=== PATIENT | female | born 1980 | race Caucasian/White ===

== ENCOUNTER 2018-06-13 23:21 | Emergency (ER) | payer BC ==
[2018-06-14] MEDS ORDERED: ALBUTEROL 2.5 MG/3 ML NEB SOL ONE (01:19)
[2018-06-14] MEDS ORDERED: METHYLPREDNISOLONE 125 MG INJ ONE (01:19)
[2018-06-14 01:20] LABS: Urine Specific Gravity 1.015 (1.005-1.030)
[2018-06-14] MEDS ORDERED: DIPHENHYDRAMINE 50 MG/ML VIAL ONE (01:20)
[2018-06-14] MEDS ORDERED: NA CHLORIDE 0.9% 1,000 ML ONE (01:20)
[2018-06-14] MEDS ORDERED: FAMOTIDINE 20 MG/2 ML VIAL IV ONE (01:20)
[2018-06-14 01:21] LABS: Urine Blood NEGATIVE (NEG); Urine Glucose NEGATIVE (NEG); Urine Protein NEGATIVE (NEG); Urine Specific Gravity 1.015 (1.005-1.030)
--- NOTE | 2018-06-14 01:56 | EDPHYS ---
Physician Documentation [facility] Name: Irma Pittman Age: 37 yrs Sex: Female : 1980 Arrival Date: 06/13/2018 Time: 23:23 Bed 26 Private MD: Anibal Mena ED Physician Lupe Orta HPI: 06/14 00:05 This 37 yrs old Female presents to ER via Ambulatory with complaints of cp medication reaction, Hand Swelling. 00:05 The patient presents with localized swelling, shortness of breath, hands and feet. cp 00:05 Onset: The symptoms/episode began/occurred today. cp 00:05 Associated signs and symptoms: Pertinent negatives: chest pain, dysphagia, rash, cp Syncope vomiting. Possible causes: NSAIDs, Meloxicam. At home the patient or guardian has treated the symptoms with nothing. Severity of symptoms: in the emergency department the symptoms are unchanged. 00:05 Patient reports she was prescribed Meloxicam, medrol dose silver and flexeril today for cp "pinched nerve" of left elbow. Started having shortness of breath, hand and feet swelling after taking Meloxicam today. 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 - Social history:: Smoking status: Patient/guardian denies using tobacco. - Ebola Screening: : Patient negative for fever greater than or equal to 101.5 degrees Fahrenheit, and additional compatible Ebola Virus Disease symptoms. ROS: 06/14 00:10 Constitutional: Negative for body aches, chills, fever, poor PO intake. cp 00:10 Eyes: Negative for injury, pain, redness, and discharge. cp 00:10 ENT: Negative for drainage from ear(s), ear pain, sore throat, difficulty swallowing, difficulty handling secretions. 00:10 Cardiovascular: Negative for chest pain, edema, palpitations. 00:10 Respiratory: Positive for shortness of breath, Negative for cough, wheezing. 00:10 Abdomen/GI: Negative for abdominal pain, vomiting, diarrhea, constipation. 00:10 MS/extremity: Positive for swelling, of the right hand, left hand, right foot and left foot, Negative for erythema. 00:10 Skin: Negative for rash. 00:10 Neuro: Negative for altered mental status, headache, syncope, weakness. 00:10 All other systems are negative. Exam: 00:15 Constitutional: The patient appears in no acute distress, alert, awake, cp non-diaphoretic, non-toxic, well developed, well nourished. 00:15 Head/Face: Normocephalic, atraumatic. Eyes: Pupils equal round and reactive to light, cp extra-ocular motions intact. Lids and lashes normal. Conjunctiva and sclera are non-icteric and not injected. Cornea within normal limits. Periorbital areas with no swelling, redness, or edema. ENT: Nares patent. No nasal discharge, no septal abnormalities noted. Tympanic membranes are normal and external auditory canals are clear. Oropharynx with no redness, swelling, or masses, exudates, or evidence of obstruction, uvula midline. Mucous membranes moist. 00:15 Chest/axilla: Inspection: normal, Palpation: is normal, no crepitus, no tenderness. 00:15 Cardiovascular: Rate: normal, Rhythm: regular. 00:15 Respiratory: the patient does not display signs of respiratory distress, Respirations: normal, no use of accessory muscles, no retractions, no splinting, no tachypnea, labored breathing, is not present, Breath sounds: decreased breath sounds, that are mild, throughout, stridor, is not appreciated, wheezing: is not appreciated. 00:15 Abdomen/GI: Inspection: abdomen appears normal. 00:15 Skin: no rash present. 00:15 Neuro: Orientation: to person, place \\T\\ time. Mentation: is normal, Cerebellar function: is grossly normal, Motor: moves all fours, strength is normal, Sensation: is normal. Vital Signs: 06/13 23:27 BP 140 / 85; Pulse 98; Resp 19 S; Temp 98.4(TE); Pulse Ox 98% on R/A; Weight 114.31 kg jd3 (R); Height 5 ft. 2 in. (157.48 cm) (R); Pain 6/10; 06/14 02:34 BP 130 / 80; Pulse 86; Resp 18; Pulse Ox 98% ; Pain 0/10; jl3 06/13 23:27 Body Mass Index 46.09 (114.31 kg, 157.48 cm) jd3 MDM: 06/13 23:54 Patient medically screened. cp 06/14 00:00 Differential diagnosis: anaphylaxis, angioedema, urticaria. cp 01:54 Data reviewed: vital signs, nurses notes, lab test result(s), and as a result, I will cp discharge patient. 01:55 Counseling: I had a detailed discussion with the patient and/or guardian regarding: the cp historical points, exam findings, and any diagnostic results supporting the discharge/admit diagnosis, to return to the emergency department if symptoms worsen or persist or if there are any questions or concerns that arise at home. Response to treatment: the patient's symptoms have mildly improved after treatment, VSS. No signs of respiratory distress, symptoms improved. Will discharge to home for continued monitoring. 06/14 01:04 Order name: Urine Dipstick--Ancillary (enter results); Complete Time: 01: cm6 06/14 01:06 Order name: Urine --Ancillary (enter results) cm6 06/14 01:06 Order name: Urine --Ancillary; Complete Time: 01: EDMS 06/14 00:11 Order name: IV; Complete Time: 01:04 cp 06/14 00:11 Order name: Urine Dipstick-Ancillary (obtain specimen); Complete Time: 01:05 cp 06/14 00:11 Order name: Urine Test (obtain specimen); Complete Time: 01:05 cp Administered Medications: 01:27 Drug: Pepcid 20 mg Route: IVP; Site: right antecubital; jl3 02:54 Follow up: Response: No adverse reaction jl3 :27 Drug: Albuterol 2.5 mg Route: Inhalation; jl3 02:53 Follow up: Response: No adverse reaction jl3 :27 Drug: SOLU-Medrol 125 mg Route: IVP; Site: right antecubital; jl3 02:53 Follow up: Response: No adverse reaction jl3 01:28 Drug: NS 0.9% 1000 ml Route: IV; Rate: 1 bolus; Site: right antecubital; jl3 02:54 Follow up: Response: No adverse reaction; IV Status: Completed infusion; IV Intake: jl3 1000ml 01:28 Drug: Benadryl 50 mg Route: IVP; Site: right antecubital; jl3 02:54 Follow up: Response: No adverse reaction jl3 Disposition: 03:53 Co-signature as Attending Physician, Lupe Orta MD. ma2 Disposition: 06/14/18 01:55 Discharged to Home. Impression: Allergy status to drugs, medicaments and biological substances. - Condition is Stable. - Discharge Instructions: Drug Allergy. - Prescriptions for prednisone 50 mg Oral tablet - take 1 tablet by ORAL route once daily for 5 days; 5 tablet. Pepcid 20 mg Oral Tablet - take 1 tablet by ORAL route every 12 hours for 5 days; 10 tablet. - Medication Reconciliation Form, Thank You Letter, Antibiotic Education, Prescription Opioid Use form. - Follow up: Private Physician; When: 1 week; Reason: Recheck today's complaints. - Problem is new. - Symptoms have improved. - Notes: Do not take medrol dose silver, take oral prednisone 50mg daily for next 5 days Signatures: Dispatcher [employer] EDMS Jeremy Li RN RN jl3 Jose L Ford PA PA Braydon Lyon RN RN jd3 Lupe Orta MD MD ma2 Corrections: (The following items were deleted from the chart) 02:52 01:55 06/14/2018 01:55 Discharged to Home. Impression: Allergy status to drugs, jl3 medicaments and biological substances. Condition is Stable. Forms are Medication Reconciliation Form, Thank You Letter, Antibiotic Education, Prescription Opioid Use. Follow up: Private Physician; When: 1 week; Reason: Recheck today's complaints. Problem is new. Symptoms have improved. cp
--- NOTE | 2018-06-14 01:56 | ER ---
Nurse's Notes [facility] Name: Irma Pittman Age: 37 yrs Sex: Female : 1980 Arrival Date: 06/13/2018 Time: 23:23 Bed 26 Private MD: Anibal Mena Diagnosis: Allergy status to drugs, medicaments and biological substances Presentation: 06/13 23:25 Presenting complaint: Patient states: "I took a new a mediation, and my hand started jd3 swelling and my face got flush and it was difficult to breath.". Transition of care: patient was not received from another setting of care. Onset of symptoms was June 13, 2018. Risk Assessment: Do you want to hurt yourself or someone else? Patient reports no desire to harm self or others. Initial Sepsis Screen: Does the patient meet any 2 criteria? No. Patient's initial sepsis screen is negative. Does the patient have a suspected source of infection? No. Patient's initial sepsis screen is negative. Care prior to arrival: None. 23:25 Method Of Arrival: Ambulatory jd3 23:25 Acuity: ERICK 2 jd3 Triage Assessment: 06/14 02:51 General: Appears uncomfortable, obese, Behavior is calm, cooperative, appropriate for jl3 age, agitated. 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 - Social history:: Smoking status: Patient/guardian denies using tobacco. - Ebola Screening: : Patient negative for fever greater than or equal to 101.5 degrees Fahrenheit, and additional compatible Ebola Virus Disease symptoms. Screenin/05 02:45 Abuse screen: none noted. Nutritional screening: No deficits noted. Tuberculosis jl3 screening: No symptoms or risk factors identified. Fall Risk None identified. Assessment: 06/13 23:43 General: Pt states has pinched nerve in L. elbow. PCP Rx Meloxicam 5mg, steroid pack jl3 and muscle relaxer. Pt states took Meloxicam x1. States face feels flushed and swollen, has difficulty taking deep breath but NO tightness in throat or swelling of tongue. Some inflammation not to L. L. arm.. Pain: Complains of pain in left elbow Pain currently is 5 out of 10 on a pain scale. Quality of pain is described as aching, crampy, Pain began 2-3 days ago. Alleviated by exercise, repositioning. 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 Cardiovascular: No deficits noted. Respiratory: Reports shortness of breath since States difficulty taking deep breath. GI: No deficits noted. : No deficits noted. Vital Signs: 23:27 BP 140 / 85; Pulse 98; Resp 19 S; Temp 98.4(TE); Pulse Ox 98% on R/A; Weight 114.31 kg jd3 (R); Height 5 ft. 2 in. (157.48 cm) (R); Pain 6/10; 06/14 02:34 BP 130 / 80; Pulse 86; Resp 18; Pulse Ox 98% ; Pain 0/10; jl3 06/13 23:27 Body Mass Index 46.09 (114.31 kg, 157.48 cm) jd3 ED Course: 06/13 23:23 Patient arrived in ED. am2 23:23 Anibal Mena MD is Private Physician. am2 23:26 Triage completed. jd3 23:28 Arm band placed on. jd3 23:36 Jeremy Li RN is Primary Nurse. jl3 23:53 Jose L Ford PA is PHCP. cp 23:53 Lupe Orta MD is Attending Physician. cp 06/14 00:58 Inserted saline lock: 22 gauge in right antecubital area, using aseptic technique. fc 02:51 No provider procedures requiring assistance completed. IV discontinued, intact, jl3 bleeding controlled, No redness/swelling at site. Pressure dressing applied. 02:52 Patient has correct armband on for positive identification. jl3 Administered Medications: 01:27 Drug: Pepcid 20 mg Route: IVP; Site: right antecubital; jl3 02:54 Follow up: Response: No adverse reaction jl3 01:27 Drug: Albuterol 2.5 mg Route: Inhalation; jl3 02:53 Follow up: Response: No adverse reaction jl3 01:27 Drug: SOLU-Medrol 125 mg Route: IVP; Site: right antecubital; jl3 02:53 Follow up: Response: No adverse reaction jl3 01:28 Drug: NS 0.9% 1000 ml Route: IV; Rate: 1 bolus; Site: right antecubital; jl3 02:54 Follow up: Response: No adverse reaction; IV Status: Completed infusion; IV Intake: jl3 1000ml 01:28 Drug: Benadryl 50 mg Route: IVP; Site: right antecubital; jl3 02:54 Follow up: Response: No adverse reaction jl3 Intake: 02:54 IV: 1000ml; Total: 1000ml. jl3 Outcome: 01:55 Discharge ordered by MD. page 02:52 Discharged to home ambulatory. jl3 02:52 Condition: improved 02:52 Discharge instructions given to patient, Prescriptions given X 2. 02:52 Patient left the ED. jl3 Signatures: Khadijah Wallace RN RN fc Jeremy Li RN RN jl3 Jose L Ford PA PA cp Moreno, Amanda am2 Davies, Jonathon, RN RN jd3
[2018-06-14] MEDS ORDERED: ONDANSETRON 4 MG/2 ML VIAL ONE (01:57)
== END 2018-06-14 02:52 | disposition home or self-care (01) ==
LOC: ER 23:21
DX: M79.89 Other specified soft tissue disorders (principal); Z88.8 Allergy status to other drugs, medicaments and biological substances; Z88.1 Allergy status to other antibiotic agents; Z88.5 Allergy status to narcotic agent
CPT/HCPCS: 81003; 81025; 96361; 96374; 96375; 99284; J2405; J2930; J7030